=== PATIENT | female | born 1995 | race Two or more races ===

== ENCOUNTER → 2020-09-10 | Outpatient (REF) | payer OTHER | LOC: M LAB REF 15:50 | PROVIDERS: ATTEND Physician Assistant | DX: J00 Acute nasopharyngitis [common cold] (principal) ==

== ENCOUNTER 2020-11-30 20:23 | Emergency (ER) | payer OTHER ==
[~2020-11-30] VITALS: Ht 165.1 cm; Wt 127.1 kg
[2020-12-01 05:33] LABS: BASO % 0.4 % (0.0-1.0); EOS # 0.2 10^3/uL (0.0-0.5); HEMATOCRIT 39.7 % (36.0-47.0); HEMOGLOBIN 13.2 g/dl (12.0-15.5); LYMPH # 2.2 10^3/uL (1.5-5.0); LYMPH % 27.7 % (24.0-44.0); MEAN CORPUSCULAR HGB CONC 33.2 g/dl (32.0-36.5); MEAN CORPUSCULAR VOLUME 87.3 fl (80.0-96.0); MONO # 0.5 10^3/uL (0.0-0.8); MONO % 5.9 % (2.0-8.0); NEUTROPHILS # 5.1 10^3/uL (1.5-8.5); NEUTROPHILS % 63.7 % (36.0-66.0); PLATELET COUNT, AUTOMATED 326 10^3/uL (150-450); RED BLOOD COUNT 4.55 10^6/uL (4.00-5.40); WHITE BLOOD COUNT 7.9 10^3/uL (4.0-10.0)
[2020-12-01 06:00] LABS: BLOOD UREA NITROGEN 13 MG/DL (7-18); CALCIUM LEVEL 8.7 MG/DL (8.5-10.1); CARBON DIOXIDE LEVEL 24 MEQ/L (21-32); CHLORIDE LEVEL 108 MEQ/L (98-107); CREATININE FOR GFR 0.82 MG/DL (0.55-1.30); GLOMERULAR FILTRATION RATE > 60.0 (>60); GLUCOSE, FASTING 101 MG/DL (70-100); HCG, SERUM QUANTITATIVE < 1.0 MIU/ML; POTASSIUM SERUM 4.9 MEQ/L (3.5-5.1); SODIUM LEVEL 137 MEQ/L (136-145)
[2020-12-01 06:48] LABS: GC DNA AMPLIFICATION NEGATIVE (NEGATIVE)
[2020-12-01 09:46] VITALS: BP 142/82
== END 2020-12-01 10:44 | disposition home or self-care (01) ==
LOC: M ED 20:23
DX: N93.8 Other specified abnormal uterine and vaginal bleeding (principal); N83.201 Unspecified ovarian cyst, right side; Z91.018 Allergy to other foods; Z91.038 Other insect allergy status

== ENCOUNTER → 2021-01-23 | Outpatient (REF) | payer OTHER | LOC: M SFHCWAGY 19:07 | PROVIDERS: ATTEND Obstetrics & Gynecology | DX: Z12.4 Encounter for screening for malignant neoplasm of cervix (principal) | CPT/HCPCS: G0123; G0463 ==

== ENCOUNTER → 2021-02-13 | Outpatient (CLI) | payer OTHER ==
--- NOTE | 2021-02-13 14:37 | REP ---
INDICATION: F/U CYST. COMPARISON: 12/01/2020. TECHNIQUE: Transabdominal and endovaginal probe imaging were provided. FINDINGS: The bladder measured 6.3 x 4.6 x 6.3 cm. Uterus is anteverted. It measures 8.8 x 4.3 x 4.7 cm. Endometrial thickness is 13 mm, previously 15 mm 10 weeks ago. There is no fluid in the endometrial cavity or endocervical canal. There is no pelvic free fluid in the cul-de-sac. The right ovary is 3.9 x 1.6 x 2.3 cm with Doppler tracing showing resistive index of 0.4, normal no adjacent free fluid, ovarian cyst or other acute finding the right adnexa. Left ovary is enlarged measuring 7.5 x 5.2 x 2.3 cm and shows Doppler tracing with resistive index of 0.54, normal. Within the ovary is a cyst 6.8 x 6.5 x 4.9 cm with simple cyst characteristics. I see no layering debris. There is no fluid adjacent to the ovary. IMPRESSION: 1. There is a 6.8 x 6.5 x 4.9 cm left ovarian cyst with the no complex features. No pelvic free fluid adjacent to that ovary normal Doppler tracing and color flow. No torsion. 2. Right ovary unremarkable and also with normal Doppler tracing. No torsion. 3. Anteverted uterus not enlarged with the endometrial stripe 13 mm, previously 15 mm on 12/01/2020. No fluid the endometrial cavity or endocervical canal. <Electronically signed by Ángel Mo > 02/13/21 [id number]
== END ==
LOC: M WHC 09:48
PROVIDERS: ATTEND Obstetrics & Gynecology
DX: N93.9 Abnormal uterine and vaginal bleeding, unspecified (principal); N83.202 Unspecified ovarian cyst, left side

== ENCOUNTER 2021-04-20 21:46 | Emergency (ER) | payer OTHER ==
[~2021-04-20] VITALS: Ht 165.1 cm; Wt 113.6 kg
[2021-04-20 23:46] LABS: RSV AMPLIFICATION NEGATIVE (NEGATIVE)
[2021-04-21 00:06] LABS: MONO SCRN NEGATIVE (NEGATIVE)
[2021-04-21 01:03] VITALS: BP 132/84
== END 2021-04-21 01:20 | disposition home or self-care (01) ==
LOC: M ED 21:46
DX: J02.9 Acute pharyngitis, unspecified (principal); U07.1 COVID-19; Z91.018 Allergy to other foods; J30.89 Other allergic rhinitis